=== PATIENT | female | born 1935 | race Hispanic/Latino ===

== ENCOUNTER 2019-11-26 10:33 | Emergency (ER) | payer MEDICARE ==
[2019-11-26 11:23] LABS: Basophils % 0.2 % (0-1.3); Hematocrit 29.2 % (36.0-45.0); Lymphocytes % 36.9 % (15.3-44.8); MPV 6.9 fL (7.6-11.3); RBC Red Blood Cell Count 2.98 M/uL (3.86-4.86)
[2019-11-26 11:46] LABS: Potassium 3.3 mmol/L (3.5-5.1)
[2019-11-26] MEDS ORDERED: HYDROCODONE/APAP 7.5/325 MG TAB ONE (12:38)
[2019-11-26] MEDS ORDERED: NA CHLORIDE 0.9% 500 ML ONE (12:39)
--- NOTE | 2019-11-26 13:29 | ER ---
Nurse's Notes [facility] Name: Anat Manning Age: 84 yrs Sex: Female : 1935 Arrival Date: 11/26/2019 Time: 10:34 Bed 8 Private MD: Diagnosis: Hypo-osmolality and hyponatremia;Multiple fractures of ribs Presentation: 11/25 10:46 Chief complaint: Chief complaint: Sodium of 127 11/20/19, also had recent fall and had aa5 x-rays on 11/17/19 Lumbar spine x-ray showed multiple compression fractures involving all vertebrae from T11-L5 with the exception of L1. Pt's daughter reports uncontrollable pain. 10:46 Acuity: DWAIN 3 aa5 10:46 Method Of Arrival: Wheelchair aa5 10:46 Coronavirus screen: Proceed with normal triage. Patient denies a cough. Patient denies aa5 shortness of breath or difficulty breathing. Patient denies measured and/or subjective temperature greater than 100.4F prior to today's visit. Patient denies travel on a cruise ship or to a country the [facility] currently lists as an affected area. Patient denies contact with known and/or suspected case of COVID-19. Ebola Screen: Patient negative for fever greater than or equal to 101.5 degrees Fahrenheit, and additional compatible Ebola Virus Disease symptoms. Initial Sepsis Screen: Does the patient meet any 2 criteria? No. Patient's initial sepsis screen is negative. Does the patient have a suspected source of infection? No. Patient's initial sepsis screen is negative. Risk Assessment: Do you want to hurt yourself or someone else? Patient reports no desire to harm self or others. Onset of symptoms was November 2019. Triage Assessment: 11:01 General: Appears in no apparent distress. uncomfortable, Behavior is cooperative, bp appropriate for age, anxious. Pain: Complains of pain in back. EENT: No deficits noted. Neuro: No deficits noted. Cardiovascular: No deficits noted. Respiratory: No deficits noted. GI: No signs and/or symptoms were reported involving the gastrointestinal system. : No signs and/or symptoms were reported regarding the genitourinary system. Derm: No deficits noted. Musculoskeletal: Circulation, motion, and sensation intact. Range of motion: intact in all extremities. Historical: - Allergies: 10:48 No Known Allergies; aa5 - Home Meds: 10:48 Tramadol Oral [Active]; meloxicam oral oral [Active]; Celexa Oral [Active]; eye drops aa5 for glaucoma [Active]; - PMHx: 10:48 Glaucoma; aa5 - PSHx: 10:48 Hysterectomy; aa5 - Immunization history:: Adult Immunizations up to date. - Social history:: Smoking status: Patient denies any tobacco usage or history of. Screenin:02 Abuse screen: Denies threats or abuse. Denies injuries from another. Nutritional bp screening: No deficits noted. Tuberculosis screening: No symptoms or risk factors identified. Fall Risk None identified. Assessment: 11:02 General: SEE TRIAGE NOTE. Neuro: Level of Consciousness is awake, alert, obeys bp commands, Oriented to person, place, time, situation, Appropriate for age Gait is steady. 11:22 Reassessment: PT RESTING QUIETLY, C/O BACK PAIN 2/2 RECENT DX OF LUMBAR COMPRESSION FX. bp NO NEURO S/S NOTED. 13:25 Reassessment: IVF INFUSING. ALL CURRENT ORDERS COMPLETED. bp 14:07 Reassessment: PT D/C HOME VIA W/C WITH FAMILY, DX WITH HYPONATREMIA. bp Vital Signs: 10:46 BP 168 / 93; Pulse 88; Resp 18 S; Temp 98.3(O); Pulse Ox 96% on R/A; aa5 11:22 BP 148 / 85; Pulse 83; Resp 16; Pulse Ox 97% ; bp 13:24 BP 154 / 96; Pulse 85; Resp 22; Pulse Ox 96% ; bp ED Course: 10:34 Patient arrived in ED. as 10:46 Jose Hirsch MD is Attending Physician. kdr 10:46 Antonio Nicole, GISELA is Primary Nurse. bp 10:46 Arm band placed on. aa5 10:46 Arm band placed on Patient placed in an exam room, on a stretcher. aa5 11:02 Patient has correct armband on for positive identification. Bed in low position. Call bp light in reach. Side rails up X2. Adult w/ patient. 11:09 Triage completed. aa5 11:10 Inserted saline lock: 22 gauge in right forearm, using aseptic technique. Blood bp collected. 14:07 No provider procedures requiring assistance completed. IV discontinued, intact, bp bleeding controlled, No redness/swelling at site. Pressure dressing applied. Administered Medications: 12:30 Drug: [place] (7.5 mg-325 mg) 1 tabs Route: PO; bp 14:08 Follow up: Response: No adverse reaction bp 12:30 Drug: NS 0.9% 500 ml Route: IV; Rate: bolus; Site: right forearm; bp 14:09 Follow up: IV Status: Completed infusion; IV Intake: 500ml bp Intake: 14:09 IV: 500ml; Total: 500ml. bp Outcome: 13:29 Discharge ordered by . kdr 14:08 Discharged to home via wheelchair, with family. bp 14:08 Condition: stable 14:08 Discharge instructions given to patient, family, Instructed on discharge instructions, follow up and referral plans. medication usage, Demonstrated understanding of instructions, follow-up care, medications, Prescriptions given X 1. 14:09 Patient left the ED. bp Signatures: Jose Hirsch MD MD kdr Nivia Garcia Audri RN RN aa5 Antonio Nicole RN RN bp Corrections: (The following items were deleted from the chart) 11:09 11:02 Arm band placed on bp aa5 11:13 10:46 Chief complaint: aa5 aa5
--- NOTE | 2019-11-26 13:30 | EDPHYS ---
Physician Documentation [facility] Name: Anat Manning Age: 84 yrs Sex: Female : 1935 Arrival Date: 11/26/2019 Time: 10:34 Bed 8 Private MD: ED Physician Jose Hirsch HPI: 11/25 15:15 This 84 yrs old Female presents to ER via Wheelchair with complaints of Back kdr Pain, Abnormal Lab Results. 15:15 The patient had blood draw on 11/19 and her Na was noted to be 127 so she was sent to kdr the ED today for it to be addressed. Over the past few weeks, the patient may have had some falls since on 11/16 she was diagnosed with multiple rib and compression fractures from L-11 to T5 except for L-1. She does not remember any particular injury and the daughter who is with her has not witnessed any falls either. Onset: The symptoms/episode began/occurred at an unknown time. Severity of symptoms: At their worst the symptoms were mild in the emergency department the symptoms are unchanged. The patient has not experienced similar symptoms in the past. The patient has been recently seen by a physician: the patient's primary care provider. Historical: - Allergies: 10:48 No Known Allergies; aa5 - Home Meds: 10:48 Tramadol Oral [Active]; meloxicam oral oral [Active]; Celexa Oral [Active]; eye drops aa5 for glaucoma [Active]; - PMHx: 10:48 Glaucoma; aa5 - PSHx: 10:48 Hysterectomy; aa5 - Immunization history:: Adult Immunizations up to date. - Social history:: Smoking status: Patient denies any tobacco usage or history of. ROS: 15:15 Constitutional: Negative for fever, chills, and weight loss, Eyes: Negative for injury, kdr pain, redness, and discharge, ENT: Negative for injury, pain, and discharge, Neck: Negative for injury, pain, and swelling, Cardiovascular: Negative for chest pain, palpitations, and edema, Respiratory: Negative for shortness of breath, cough, wheezing, and pleuritic chest pain, Abdomen/GI: Negative for abdominal pain, nausea, vomiting, diarrhea, and constipation, : Negative for injury, bleeding, discharge, and swelling, MS/Extremity: Negative for injury and deformity, Skin: Negative for injury, rash, and discoloration, Psych: Negative for depression, anxiety, suicide ideation, homicidal ideation, and hallucinations, Allergy/Immunology: Negative for hives, rash, and allergies, Endocrine: Negative for neck swelling, polydipsia, polyuria, polyphagia, and marked weight changes, Hematologic/Lymphatic: Negative for swollen nodes, abnormal bleeding, and unusual bruising. 15:15 Back: Positive for injury or acute deformity, decreased range of motion, pain at rest, pain with movement, of the thoracic area and lumbar area. Exam: 15:15 Constitutional: This is a well developed, well nourished patient who is awake, alert, kdr and in no acute distress. Head/Face: Normocephalic, atraumatic. Eyes: Pupils equal round and reactive to light, extra-ocular motions intact. Lids and lashes normal. Conjunctiva and sclera are non-icteric and not injected. Cornea within normal limits. Periorbital areas with no swelling, redness, or edema. Neck: Trachea midline, no thyromegaly or masses palpated, and no cervical lymphadenopathy. Supple, full range of motion without nuchal rigidity, or vertebral point tenderness. No Meningismus. Chest/axilla: Normal chest wall appearance and motion. Nontender with no deformity. No lesions are appreciated. Cardiovascular: Regular rate and rhythm with a normal S1 and S2. No gallops, murmurs, or rubs. Normal PMI, no JVD. No pulse deficits. Respiratory: Lungs have equal breath sounds bilaterally, clear to auscultation and percussion. No rales, rhonchi or wheezes noted. No increased work of breathing, no retractions or nasal flaring. Abdomen/GI: Soft, non-tender, with normal bowel sounds. No distension or tympany. No guarding or rebound. No evidence of tenderness throughout. Skin: Warm, dry with normal turgor. Normal color with no rashes, no lesions, and no evidence of cellulitis. MS/ Extremity: Pulses equal, no cyanosis. Neurovascular intact. Full, normal range of motion. Neuro: Awake and alert, GCS 15, oriented to person, place, time, and situation. Cranial nerves II-XII grossly intact. Motor strength 5/5 in all extremities. Sensory grossly intact. Cerebellar exam normal. Normal gait. Psych: Awake, alert, with orientation to person, place and time. Behavior, mood, and affect are within normal limits. 15:15 Back: pain, that is moderate, of the lumbar area. Vital Signs: 10:46 BP 168 / 93; Pulse 88; Resp 18 S; Temp 98.3(O); Pulse Ox 96% on R/A; aa5 11:22 BP 148 / 85; Pulse 83; Resp 16; Pulse Ox 97% ; bp 13:24 BP 154 / 96; Pulse 85; Resp 22; Pulse Ox 96% ; bp MDM: 13:29 Patient medically screened. kdr 15:53 Data reviewed: vital signs, nurses notes, lab test result(s), EKG, radiologic studies. kdr Counseling: I had a detailed discussion with the patient and/or guardian regarding: the historical points, exam findings, and any diagnostic results supporting the discharge/admit diagnosis, lab results, radiology results, the need for outpatient follow up. 11/25 11:02 Order name: CBC with Diff; Complete Time: 12:00 kdr 11/25 11:02 Order name: Chem 7; Complete Time: 12:00 kdr Administered Medications: 12:30 Drug: [place] (7.5 mg-325 mg) 1 tabs Route: PO; bp 14:08 Follow up: Response: No adverse reaction bp 12:30 Drug: NS 0.9% 500 ml Route: IV; Rate: bolus; Site: right forearm; bp 14:09 Follow up: IV Status: Completed infusion; IV Intake: 500ml bp Disposition: 11/26/19 13:29 Discharged to Home. Impression: Hypo-osmolality and hyponatremia, Multiple fractures of ribs. - Condition is Stable. - Discharge Instructions: Hyponatremia, [id number]. - Prescriptions for Tylenol- Codeine #3 300-30 mg Oral Tablet - take 1 tablet by ORAL route every 4-6 hours As needed; 20 tablet. - Medication Reconciliation Form, Thank You Letter, Antibiotic Education, Prescription Opioid Use form. - Follow up: Private Physician; When: 2 - 3 days; Reason: If symptoms return, Further diagnostic work-up, Recheck today's complaints, Continuance of care, Re-evaluation by your physician. - Problem is new. - Symptoms have improved. Signatures: Dispatcher [employer] EDMT Jose Hirsch MD MD kdr Elysia Dueñas, RN RN aa5 Antonio Nicole, RN RN bp Corrections: (The following items were deleted from the chart) 14:09 13:29 11/26/2019 13:29 Discharged to Home. Impression: Hypo-osmolality and bp hyponatremia; Multiple fractures of ribs. Condition is Stable. Forms are Medication Reconciliation Form, Thank You Letter, Antibiotic Education, Prescription Opioid Use. Follow up: Private Physician; When: 2 - 3 days; Reason: If symptoms return, Further diagnostic work-up, Recheck today's complaints, Continuance of care, Re-evaluation by your physician. Problem is new. Symptoms have improved. kdr
[2019-11-26 14:24] VITALS: TEMP 98.3
[2019-11-26 14:26] VITALS: BP 154/96; O2SAT 96
== END 2019-11-26 14:09 | disposition home or self-care (01) ==
LOC: ER 10:33
DX: S22.49XA Multiple fractures of ribs, unspecified side, initial encounter for closed fracture (principal); X58.XXXA Exposure to other specified factors, initial encounter; E87.1 Hypo-osmolality and hyponatremia; H40.9 Unspecified glaucoma
CPT/HCPCS: 96361; 85025; 80048; 36415; 96360; 99284; J7040

== ENCOUNTER 2024-07-29 22:11 | Inpatient (IN) | payer OTHER ==
[2024-07-29] MEDS ORDERED: IBUPROFEN 200 MG TAB PO ONE (22:57)
[2024-07-30] MEDS ORDERED: CODEINE 30MG/APAP 300MG TAB ONE (00:16)
--- NOTE | 2024-07-30 01:19 | RAD REPORT ---
EXAM: CT Head and Cervical Spine Without Intravenous Contrast CLINICAL HISTORY: The patient is 88 years old and is Female; TRAUMA TECHNIQUE: Axial computed tomography images of the head/brain and cervical spine without intravenous contrast. Sagittal and coronal reformatted images were created and reviewed. This CT exam was performed using one or more of the following dose reduction techniques: automated exposure control, adjustmen t of the mA and/or kV according to patient size, and/or use of iterative reconstruction technique. COMPARISON: No relevant prior studies available. FINDINGS: BRAIN: There is diffuse cerebral atrophy present, consistent with this patient's age. There is patchy hypoattenuation of the deep white matter which is non-specific, but most likely owing to chronic small vessel ischemic change in a patient of this age group. No intracranial hemorrhage, ma ss effect, midline shift is seen. There are no extra-axial fluid collections. VENTRICLES: Unremarkable. No ventriculomegaly. SKULL: Innumerable lucent foci throughout the calvarium are present. There is no acute fracture. SINUSES: Unremarkable as visualized. No acute sinusitis. MASTOID AIR CELLS: Unremarkable as visualized. No mastoid effusion. ORBITS: Postsurgical change of the right globe is present. VERTEBRAE: The bones are diffusely osteopenic. The vertebral body heights and alignment are maint ained. No acute fracture. DISCS/SPINAL CANAL/NEURAL FORAMINA: The intervertebral disc spaces are maintained. No spinal rodrigo l stenosis. SOFT TISSUES: The soft tissues are normal. LUNG APICES: The lung apices are clear. IMPRESSION: 1. No acute intracranial findings. 2. Innumerable lucent foci throughout the calvarium and visualized cervical spine. Findings may be secondary to diffuse osteopenia, malignancy, metastatic disease, or multiple myeloma. Correlation with patient history and further evaluation is recommended as indicated. 3. No fracture or malalignment of the cervical spine. Electronically signed by: Afshan Blandon MD 07/30/2024 01:14 AM [facility] Due to temporary technical issues with the PACS/My[employer] reporting system, reports are being opal d by the in-house radiologist without review as a courtesy to ensure prompt reporting the interpreting radiologist is fully responsible for the content of the report. Transcribed Date/Time: 07/30/2024 1:19 AM
--- NOTE | 2024-07-30 01:21 | RAD REPORT ---
EXAM: CT Pelvis Without Intravenous Contrast CLINICAL HISTORY: The patient is 88 years old and is Female; PAIN TECHNIQUE: Axial computed tomography images of the pelvis without intravenous contrast. Sagittal and coronal reformatted images were created and reviewed. This CT exam was performed using one or more of the following dose reduction techniques: automated exposure control, adjustment of the mA and/or kV according to patient size, and/or use of iterative reconstruction technique. COMPARISON: Pelvic radiographs performed July 29, 2024 FINDINGS: BONES/JOINTS: The bones are diffusely osteopenic. The femoral heads are located. A fracture throu gh the left iliac wing is present which is not significantly displaced. The SI joints and pubic symphysis are intact without evidence of diastases. Left inferior and superior pubic rami fractures a re noted. SOFT TISSUES: The soft tissues are normal. VASCULATURE: Calcified phleboliths are present within the pelvis. Atherosclerosis of the vascul ature is present. The vessels are normal in caliber. BLADDER: The bladder is minimally distended. No stones. IMPRESSION: 1. Left iliac wing fracture. 2. Left superior and inferior pubic ramus fractures. Electronically signed by: Afshan Blandon MD 07/30/2024 01:16 AM [facility] Due to temporary technical issues with the PACS/[employer] reporting system, reports are being opal d by the in-house radiologist without review as a courtesy to ensure prompt reporting the interpreting radiologist is fully responsible for the content of the report. Transcribed Date/Time: 07/30/2024 1:21 AM
--- NOTE | 2024-07-30 01:46 | EDPHYS ---
Physician Documentation [facility] Name: Anat Moon Age: 88 yrs Sex: Female : 1935 Arrival Date: 07/29/2024 Time: 22:11 Bed 14 Private MD: ED Physician Roberto Candelario HPI: 07/29 23:42 This 88 yrs old Female presents to ER via EMS with complaints of hip pain s/p kb fall. 23:42 Pt is an 88 year old female who presents for pain to left hip and groin after falling kb from standing position. Son states pt got up from bed to go to the restroom and fell onto left side. States pt's walker was laying on it's side when he walked into the room. 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 States pt did hit her head, but denies loc, nausea, vomiting, headache, neck pain. Pt only reports pain to left hip and groin. . Historical: - Allergies: 22:19 No Known Allergies; jb4 - PMHx: 22:19 Glaucoma; multiple myloma lung cancer (Glaucoma); anxiety (Glaucoma); jb4 - Immunization history:: Adult Immunizations up to date. - Infectious Disease History:: Denies. - Social history:: Smoking status: Patient denies any tobacco usage or history of. ROS: 23:40 Constitutional: As per HPI kb Exam: 23:40 Constitutional: This is a well developed, well nourished patient who is awake, alert, kb and in no acute distress. Head/Face: Normocephalic, atraumatic. ENT: Moist Mucous membranes Neck: Trachea midline and no cervical lymphadenopathy. Supple, full range of motion without nuchal rigidity, or vertebral point tenderness. No Meningismus. Cardiovascular: Regular rate Respiratory: Respirations even and unlabored. No increased work of breathing. Talking in full sentences Abdomen/GI: Soft, non-tender. No distention Back: No spinal tenderness. No costovertebral tenderness. Full range of motion. Skin: Warm, dry with normal turgor. Normal color. Neuro: Awake and alert, GCS 15, oriented to person, place, time, and situation. 23:40 Musculoskeletal/extremity: Extremities: grossly normal except: noted in the left femoral area and left hip: pain, tenderness, ROM: limited active range of motion due to pain, Circulation is intact in all extremities. Sensation intact. Weight bearing: is unable to bear weight, Vital Signs: 22:20 BP 140 / 73; Pulse 70; Resp 20; Temp 97.2; Pulse Ox 100% on R/A; Weight 62.6 kg (R); jb4 Height 5 ft. 1 in. (R); Pain 4/10; 23:27 BP 121 / 63; Pulse 71; Resp 16; Pulse Ox 96% on R/A; jb4 07/30 00:57 BP 123 / 63; Pulse 75; Resp 18; Pulse Ox 99% ; cp4 03:00 BP 106 / 55; Pulse 81; Resp 16; Pulse Ox 97% ; cp4 07/29 22:20 Body Mass Index 26.07 (62.60 kg, 154.94 cm) jb4 07/29 22:20 Pain Scale: Adult jb4 MDM: 07/29 22:16 Medical Screening Exam initiated kb 07/30 01:01 Data reviewed: vital signs, nurses notes. Transition of care: After a detail discussion kb of the patient's case, care is transferred to Roberto Candelario MD. :23 ED course: EXAM: CT Pelvis Without Intravenous Contrast CLINICAL HISTORY: The patient sp4 is 88 years old and is Female; PAIN TECHNIQUE: Axial computed tomography images of the pelvis without intravenous contrast. Sagittal and coronal reformatted images were created and reviewed. This CT exam was performed using one or more of the following dose reduction techniques: automated exposure control, adjustment of the mA and/or kV according to patient size, and/or use of iterative reconstruction technique. COMPARISON: Pelvic radiographs performed July 29, 2024 FINDINGS: BONES/JOINTS: The bones are diffusely osteopenic. The femoral heads are located. A fracture through the left iliac wing is present which is not significantly displaced. The SI joints and pubic symphysis are intact without evidence of diastases. Left inferior and superior pubic rami fractures are noted. SOFT TISSUES: The soft tissues are normal. VASCULATURE: Calcified phleboliths are present within the pelvis. Atherosclerosis of the vasculature is present. The vessels are normal in caliber. BLADDER: The bladder is minimally distended. No stones. IMPRESSION: 1. Left iliac wing fracture. 2. Left superior and inferior pubic ramus fractures. Electronically signed by: Afshan Blandon MD 07/30/2024 01:16 AM . :23 ED course: EXAM: CT Head and Cervical Spine Without Intravenous Contrast CLINICAL sp4 HISTORY: The patient is 88 years old and is Female; TRAUMA TECHNIQUE: Axial computed tomography images of the head/brain and cervical spine without intravenous contrast. Sagittal and coronal reformatted images were created and reviewed. This CT exam was performed using one or more of the following dose reduction techniques: automated exposure control, adjustment of the mA and/or kV according to patient size, and/or use of iterative reconstruction technique. COMPARISON: No relevant prior studies available. FINDINGS: BRAIN: There is diffuse cerebral atrophy present, consistent with this patient's age. There is patchy hypoattenuation of the deep white matter which is non-specific, but most likely owing to chronic small vessel ischemic change in a patient of this age group. No intracranial hemorrhage, mass effect, midline shift is seen. There are no extra-axial fluid collections. VENTRICLES: Unremarkable. No ventriculomegaly. SKULL: Innumerable lucent foci throughout the calvarium are present. There is no acute fracture. SINUSES: Unremarkable as visualized. No acute sinusitis. MASTOID AIR CELLS: Unremarkable as visualized. No mastoid effusion. ORBITS: Postsurgical change of the right globe is present. VERTEBRAE: The bones are diffusely osteopenic. The vertebral body heights and alignment are maintained. No acute fracture. DISCS/SPINAL CANAL/NEURAL FORAMINA: The intervertebral disc spaces are maintained. No spinal canal stenosis. SOFT TISSUES: The soft tissues are normal. LUNG APICES: The lung apices are clear. IMPRESSION: 1. No acute intracranial findings. 2. Innumerable lucent foci throughout the calvarium and visualized cervical spine. Findings may be secondary to diffuse osteopenia, malignancy, metastatic disease, or multiple myeloma. Correlation with patient history and further evaluation is recommended as indicated. 3. No fracture or malalignment of the cervical spine.. ED course: EXAM: XR Left Hip With Pelvis When Performed, 2 or 3 Views CLINICAL HISTORY: The patient is 88 years old and is Female; PAIN TECHNIQUE: Two or three views of the left hip with pelvis when performed. COMPARISON: No relevant prior studies available. FINDINGS: BONES/JOINTS: The bones are osteopenic. The femoral head is located. There is no acute fracture. No dislocation. SOFT TISSUES: Unremarkable. IMPRESSION: No acute findings in the left hip.. 01:24 ED course: EXAM: XR Pelvis, 1 or 2 Views CLINICAL HISTORY: The patient is 88 years old sp4 and is Female; PAIN TECHNIQUE: Frontal view of the pelvis. COMPARISON: No relevant prior studies available. FINDINGS: BONES/JOINTS: The bones are osteopenic. The femoral heads are located. The SI joints and pubic symphysis are intact without evidence of diastases. No acute fracture. No dislocation. SOFT TISSUES: Unremarkable. IMPRESSION: No acute findings in the pelvis. . 01:44 Differential diagnosis: abrasion, closed head injury, contusion, fracture, laceration, sp4 multiple trauma, sprain, strain. Consideration of Admission/Observation Patient was admitted/placed on observation. Escalation of care including admission/observation considered. Management of patient was discussed with the following: Hospitalist: Francis AVITIA . Adhesive Bonding Machine Operator: Rajesh Lau MD . ED course: We have requested consultation by orthopedist also admission for pain control and physical therapy.. 07/30 01:42 Order name: CBC with Diff sp4 07/30 01:42 Order name: CMP; Complete Time: 03:06 sp4 07/30 01:42 Order name: Urinalysis w/ reflexes sp4 07/30 01:43 Order name: PT-INR; Complete Time: 03:06 sp4 07/30 01:43 Order name: Type And Screen sp4 07/30 02:47 Order name: Manual Differential EDMS 07/30 03:08 Order name: Urinalysis w/ reflexes EDMS 07/30 03:08 Order name: CBC with Automated Diff EDMS 07/30 03:08 Order name: CBC with Automated Diff EDMS 07/30 03:08 Order name: Comprehensive Metabolic Panel EDMS 07/30 03:08 Order name: Comprehensive Metabolic Panel EDMS 07/30 07:53 Order name: Basic Metabolic Panel EDMS 07/30 11:41 Order name: Osmolality, Serum EDMS 07/29 22:48 Order name: CT Head C Spine; Complete Time: :23 kb 07/29 22:48 Order name: Hip Left 2 View XRAY kb 07/29 22:48 Order name: Pelvis XRAY kb 07/30 00:04 Order name: CT Pelvis wo Cont; Complete Time: :23 kb 07/30 03:08 Order name: Physical Therapy Consult EDPR 07/30 01:42 Order name: IV Saline Lock; Complete Time: 01:59 sp4 07/30 01:42 Order name: Labs collected and sent; Complete Time: :59 sp4 Administered Medications: 07/29 23:05 Drug: Ibuprofen PO 600 mg PO once Route: PO; jb4 07/30 00:25 Follow up: Response: No adverse reaction; Marked relief of symptoms jb4 00:25 Drug: Acetaminophen-Codeine PO (300 mg-30 mg) 1 tablet PO once; RASS on ADMIN: Combtv4, jb4 Very Agttd3, Agttd2, Rstlss1, AlertClm0, Drwsy-1, Lt Sdtn-2, Mod Sdtn-3, Dp Sdtn-4, UnArsble-5 Route: PO; 02:25 Follow up: Response: No adverse reaction; Pain is decreased cp4 02:09 Drug: morphine IVP or IV 2 mg IVP once over 4 mins Route: IVP; Infused Over: 4 mins; cp4 Site: right antecubital; 02:25 Follow up: Response: No adverse reaction; Pain is decreased cp4 04:26 Not Given (Duplicate Order): ondansetron 4 mg IVP once; over 2 minutes cp4 Disposition: 01:45 Co-signature as Attending Physician, Monet GONZALEZ I agree with the assessment sp4 and plan of care. I reviewed the patient's care provided by Advanced Practice Provider \T\ agree w/ the diagnosis \T\ care plan. I personally saw the pt \T\ performed a substantive portion of the visit, incldng all aspects of the (History/Exam/Medical Decision Making). Disposition Summary: 07/30/24 01:46 Hospitalization Ordered Notes: Hospitalization Status: Inpatient Admission sp4 Provider: Canelo Blanco spMilton Condition: Stable sp4 Problem: new sp4 Symptoms: have improved sp4 Bed/Room Type: Standard sp4 Location: Telemetry/MedSurg (Inpatient)(07/30/24 13:33) kb3 Room Assignment: 219(07/30/24 13:33) kb3 Diagnosis - Left superior pubic ramus fracture, left inferior pubic ramus fracture, left iliac sp4 wing fracture, moderate to severe pain with ambulation , Acute Fall at home Forms: - Medication Reconciliation Form sp4 - SBAR form sp4 - Leadership Thank You Letter sp4 Signatures: Dispatcher [employer] EDMS Monet Rubio, SENIOR SAFETY SUPPORT MANAGER-C SENIOR SAFETY SUPPORT MANAGER-[place] Marvin Garcia em1 Munir Mcdowell, RN RN jb4 Dalia Irwin, GISELA RN vc1 Carey Santamaria, RN RN kb3 Roberto Candelario MD MD sp4 Carmel Stokes cp4 Corrections: (The following items were deleted from the chart) 07/29 22:48 22:48 Head C Spine MPR Wo Con+CT.RAD.BRZ ordered. EDMS EDMS 22:48 22:48 Hip Left 2 View+RAD.RAD.BRZ ordered. EDMS EDMS 22:48 22:48 Pelvis+RAD.RAD.BRZ ordered. EDMS EDMS 07/30 00:04 00:04 Pelvis Wo Cont+CT.RAD.BRZ ordered. EDMS EDMS 01:43 01:43 CBC+H.LAB.BRZ ordered. EDMS EDMS 01:43 01:43 COMPREHENSIVE METABOLIC PANEL+C.LAB.BRZ ordered. EDMS EDMS 01:43 01:43 Urinalysis+U.LAB.BRZ ordered. EDMS EDMS 02:22 01:46 Telemetry/MedSurg (Inpatient) sp4 vc1 02:22 01:46 sp4 vc1 09:26 02:22 RUST ER HOLD vc1 em1 09:26 02:22 ERHOLD- vc1 em1 10:03 09:26 Telemetry/MedSurg (Inpatient) em1 kb3 10:03 09:26 408 em1 kb3 13:33 10:03 RUST ER HOLD kb3 kb3 13:33 10:03 ERHOLD- kb3 kb3
--- NOTE | 2024-07-30 01:46 | ER ---
Nurse's Notes [facility] Name: Anat Moon Age: 88 yrs Sex: Female : 1935 Arrival Date: 07/29/2024 Time: 22:11 Bed 14 Private MD: Diagnosis: Left superior pubic ramus fracture, left inferior pubic ramus fracture, left iliac wing fracture, moderate to severe pain with ambulation , Acute Fall at home Presentation: 07/29 22:18 Chief complaint: EMS states: Family called due to fall. Pt complaining of left hip pain jb4 that originated in the groin. No LOC, no thinners. Pain is a 3-4 at rest and a 10 with being moved. 22:20 Coronavirus screen: At this time, the client does not indicate any symptoms associated jb4 with coronavirus-19. Ebola Screen: No symptoms or risks identified at this time. Initial Sepsis Screen: Does the patient meet any 2 criteria? No. Patient's initial sepsis screen is negative. Does the patient have a suspected source of infection? No. Patient's initial sepsis screen is negative. Risk Assessment: Do you want to hurt yourself or someone else? Patient reports no desire to harm self or others. Onset of symptoms was July 29, 2024. Transition of care: patient was not received from another setting of care. 22:20 Method Of Arrival: EMS: [facility] jb4 22:20 Acuity: DWAIN 3 jb4 Historical: - Allergies: 22:19 No Known Allergies; jb4 - PMHx: 22:19 Glaucoma; multiple myloma lung cancer (Glaucoma); anxiety (Glaucoma); jb4 - Immunization history:: Adult Immunizations up to date. - Infectious Disease History:: Denies. - Social history:: Smoking status: Patient denies any tobacco usage or history of. Screenin:31 [facility] ED Fall Risk Assessment (Adult) History of falling in the last 3 months, jb4 including since admission No falls in past 3 months (0 pts) Confusion or Disorientation No (0 pts) Intoxicated or Sedated No (0 pts) Impaired Gait No (0 pts) Mobility Assist Device Used No (0 pt) Altered Elimination No (0 pt) Score/Fall Risk Level 0 - 2 = Low Risk Oriented to surroundings, Maintained a safe environment. Abuse screen: Denies threats or abuse. Nutritional screening: No deficits noted. Tuberculosis screening: No symptoms or risk factors identified. Assessment: 22:31 General: Appears in no apparent distress. comfortable, Behavior is calm, cooperative, jb4 appropriate for age. Pain: Complains of pain in groin and left hip Pain does not radiate. Pain currently is 4 out of 10 on a pain scale. Neuro: Level of Consciousness is awake, alert, obeys commands, Oriented to person, place, time, situation. Cardiovascular: Patient's skin is warm and dry. Respiratory: Airway is patent Respiratory effort is even, unlabored, Respiratory pattern is regular, symmetrical. Derm: Skin is intact, Skin is pink, warm \T\ dry. Musculoskeletal: Circulation, motion, and sensation intact. Range of motion: intact in all extremities. 23:26 Reassessment: Patient appears in no apparent distress at this time. Patient and/or jb4 family updated on plan of care and expected duration. Pain level reassessed. Patient is alert, oriented x 3, equal unlabored respirations, skin warm/dry/pink. Vital Signs: 22:20 BP 140 / 73; Pulse 70; Resp 20; Temp 97.2; Pulse Ox 100% on R/A; Weight 62.6 kg (R); jb4 Height 5 ft. 1 in. (R); Pain 4/10; 23:27 BP 121 / 63; Pulse 71; Resp 16; Pulse Ox 96% on R/A; jb4 07/30 00:57 BP 123 / 63; Pulse 75; Resp 18; Pulse Ox 99% ; cp4 03:00 BP 106 / 55; Pulse 81; Resp 16; Pulse Ox 97% ; cp4 07/29 22:20 Body Mass Index 26.07 (62.60 kg, 154.94 cm) jb4 07/29 22:20 Pain Scale: Adult 4 ED Course: 07/29 22:15 Patient arrived in ED. vc1 22:16 Monet Rubio FNP-C [facility] kb 22:16 Roberto Candelario MD is Attending Physician. kb 22:21 Triage completed. jb4 22:31 Arm band placed on right wrist. jb4 22:31 Patient has correct armband on for positive identification. Bed in low position. Call jb4 light in reach. Side rails up X 1. Provided Education on: plan of care. 23:18 Hip Left 2 View XRAY In Process Unspecified. EDMS 23:18 Pelvis XRAY In Process Unspecified. EDMS 23:25 Mnuir Mcdowell, RN is Primary Nurse. jb4 07/30 00:05 CT Head C Spine In Process Unspecified. EDMS 00:11 CT Pelvis wo Cont In Process Unspecified. EDMS 01:45 Canelo Blanco MD is Hospitalizing Provider. sp4 02:02 No provider procedures requiring assistance completed. Initial lab(s) drawn, by sc, cp4 sent to lab. Inserted saline lock: 20 gauge in right antecubital area, using aseptic technique. Blood collected. Flushed with 10 mL NS. 03:01 Patient admitted, IV remains in place. cp4 11:42 Primary Nurse role handed off by Munir Mcdowell, GISELA bp 11:42 Antonio Nicole, RN is Primary Nurse. bp Administered Medications: 07/29 23:05 Drug: Ibuprofen PO 600 mg PO once Route: PO; jb4 07/30 00:25 Follow up: Response: No adverse reaction; Marked relief of symptoms jb4 00:25 Drug: Acetaminophen-Codeine PO (300 mg-30 mg) 1 tablet PO once; RASS on ADMIN: Combtv4, jb4 Very Agttd3, Agttd2, Rstlss1, AlertClm0, Drwsy-1, Lt Sdtn-2, Mod Sdtn-3, Dp Sdtn-4, UnArsble-5 Route: PO; 02:25 Follow up: Response: No adverse reaction; Pain is decreased cp4 02:09 Drug: morphine IVP or IV 2 mg IVP once over 4 mins Route: IVP; Infused Over: 4 mins; cp4 Site: right antecubital; 02:25 Follow up: Response: No adverse reaction; Pain is decreased cp4 04:26 Not Given (Duplicate Order): ondansetron 4 mg IVP once; over 2 minutes cp4 Medication: 07/29 22:31 VIS not applicable for this client. jb4 Outcome: 07/30 01:46 Decision to Hospitalize by Provider. sp4 03:01 Admitted to ER Hold. Please see [facility] for further documentation. cp4 03:01 Condition: stable 03:01 Instructed on the need for admit, 14:58 Patient left the ED. bp Signatures: Dispatcher [employer] EDMS Monet Rubio, TERMITE TREATER HELPER-C TERMITE TREATER HELPER-Munir Hopkins RN RN jb4 Antonio Nicole RN RN bp Dalia Irwin RN RN vc1 Roberto Candelario MD MD sp4 Carmel Stokes cp4
[2024-07-30] MEDS ORDERED: MORPHINE 2 MG/ML SYR ONE ×3 (02:04→12:40)
[2024-07-30 02:39] LABS: PT Prothrombin Time 11.8 SECONDS (9.4-12.5); Protime INR 1.13
[2024-07-30 02:40] LABS: Absolute Lymphocytes (CBC) 1.1 K/uL (0.7-4.9); Absolute Monocytes 0.6 K/uL (0.1-1.3); Absolute Neutrophil 12.1 K/uL (1.8-8.0); Eosinophils % 0.2 % (0-4.4); Hematocrit 38.7 % (36.0-45.0); Hemoglobin 13.5 g/dL (12.0-15.0); Lymphocytes % 7.9 % (15.3-44.8); MCH 33.2 pg (27.0-35.0); MPV 7.1 fL (7.6-11.3); Monocytes % 4.1 % (3.3-12.3); Neutrophils % 87.8 % (41.7-73.7); Platelets 272 thou/uL (152-406); RBC Red Blood Cell Count 4.07 M/uL (3.86-4.86); Red Cell Distribution Width 12.4 % (12.1-15.2)
[2024-07-30 02:50] LABS: Albumin 3.6 g/dL (3.4-5.0); Albumin/Globulin Ratio 0.8 (1.1-1.8); Anion Gap 10.9 mEq/L (5.0-15.0); Bilirubin Total 0.8 mg/dL (0.2-1.0); Globulin 4.5 g/dL (2.3-3.5); Potassium 3.9 mEq/L (3.5-5.1); Protein, Total 8.1 g/dL (6.4-8.2)
[2024-07-30] MEDS ORDERED: ONDANSETRON 4 MG/2 ML VIAL IV PRN (03:02)
--- NOTE | 2024-07-30 03:03 | P.HP ---
Certification for Inpatient Patient admitted to: Inpatient With expected LOS: >2 Midnights Practitioner: I am a practitioner with admitting privileges, knowledge of patient current condition, hospital course, and medical plan of care. Services: Services provided to patient in accordance with Admission requirements found in Title 42 Section 412.3 of the Code of Federal Regulations Patient History Date of Service: 07/30/24 Reason for admission: Hip Pain History of Present Illness: 88 yrs old Female with past medical history of glaucoma, multiple myeloma, history of lung cancer, anxiety, who was brought to ER with hip pain status post fall. She had a fall from standing position and started having pain to left hip and groin after falling. Patient is a poor historian hence most of the history is obtained from the chart review and also talking to the ER physician and family at the bedside. She apparently got up from bed to go to the restroom and fell onto left side. States pt's walker was laying on it's side when the family walked into the room. Denies any syncopal episode. No seizures or loss of consciousness. Denies any nausea, vomiting, headache, neck pain. Pt only reports pain to left hip and groin. . Patient was assessed in the ER and is admitted for further management of pubic Rami fracture Allergies No Known Allergies Allergy (Verified 11/26/19 11:01) Home medications list reviewed: Yes Home Medications: Citalopram [Celexa] 10 mg PO DAILY 07/30/24 Ibandronate Sodium [Boniva] 150 mg PO SEECOM 07/30/24 LORazepam [Ativan] 1 mg PO PRN PRN 07/30/24 Latanoprost Ophth [Xalatan 0.005%*] 2.5 ml EACH EYE DAILY 07/30/24 Levocetirizine Dihydrochloride [Xyzal] 5 mg PO DAILY 07/30/24 - Past Medical/Surgical History Past Medical History: Reviewed- Non-Contributory Past Surgical History: Reviewed- Non-Contributory - Social History Smoking Status: Never smoker Review of Systems is unable to be obtained Physical Examination - Vital Signs Temperature: 97.2 F Blood Pressure: 102/61 Pulse: 90 Respirations: 18 Pulse Ox (%): 94 - Physical Exam General: Alert, Moderate distress HEENT: Atraumatic, Normocephalic Neck: Supple Respiratory: Clear to auscultation bilaterally, Normal air movement Cardiovascular: Regular rate/rhythm, Normal S1 S2 Capillary refill: <2 Seconds Gastrointestinal: Soft and benign, W/out hepatosplenomegaly Musculoskeletal: No clubbing, Tenderness Integumentary: No rashes Neurological: Abnormal gait Lymphatics: No axilla or inguinal lymphadenopathy - Studies Laboratory Data (last 24 hrs) 07/30/24 07/30/24 07/30/24 01:55 01:55 01:55 WBC 13.70 H Hgb 13.5 Hct 38.7 Plt Count 272 PT 11.8 INR 1.13 Sodium 128 L Potassium 3.9 BUN 13 Creatinine 0.74 Glucose 151 H Total Bilirubin 0.8 AST 26 ALT 20 Alkaline Phosphatase 51 Assessment and Plan - Plan Fall Hip Pain CT findings noted 1. Left iliac wing fracture. 2. Left superior and inferior pubic ramus fractures Pain controlled Orthopedic consulted PT OT evaluation Hyponatremia IV hydration Monitor electrolytes and replace accordingly Anxiety Continue home medications and titrate as needed GI/DVT prophylaxis Advanced directive full code Discharge Plan: Long Term Plan to discharge in: 48 Hours - Advance Directives Does patient have a Living Will: No Does patient have a Durable POA for Healthcare: No - Code Status/Comfort Care Code Status: Full Code Time Spent Managing Pts Care (In Minutes): 48
[2024-07-30] MEDS ORDERED: HYDROCODONE/APAP 5/325 MG TAB PO PRN (03:06)
[2024-07-30 03:24] LABS: Band Neutrophils 6 % (0-1); Differential Total Cells Count 100; Lymphocytes 12 % (15-42); Monocytes 5 % (0-10); Segmented Neutrophils 77 % (40-80)
[2024-07-30 03:25] LABS: Blood Morphology Comment NOT SEEN (NOT SEEN); Platelet Estimate ADEQ
[2024-07-30 04:00] VITALS: BMI 26.0
[2024-07-30] MEDS: NA CHLORIDE 0.9% 1,000 ML IV SCH (05:41)
--- NOTE | 2024-07-30 05:56 | RAD REPORT ---
EXAM: XR Pelvis, 1 or 2 Views CLINICAL HISTORY: The patient is 88 years old and is Female; PAIN TECHNIQUE: Frontal view of the pelvis. COMPARISON: No relevant prior studies available. FINDINGS: BONES/JOINTS: The bones are osteopenic. The femoral heads are located. The SI joints and pubic sy mphysis are intact without evidence of diastases. No acute fracture. No dislocation. SOFT TISSUES: Unremarkable. IMPRESSION: No acute findings in the pelvis. Electronically signed by: Afshan Blandon MD 07/29/2024 11:49 PM [facility] Due to temporary technical issues with the PACS/[employer] reporting system, reports are being opal d by the in-house radiologist without review as a courtesy to ensure prompt reporting the interpreting radiologist is fully responsible for the content of the report. Transcribed Date/Time: 07/30/2024 5:56 AM
--- NOTE | 2024-07-30 05:56 | RAD REPORT ---
EXAM: XR Left Hip With Pelvis When Performed, 2 or 3 Views CLINICAL HISTORY: The patient is 88 years old and is Female; PAIN TECHNIQUE: Two or three views of the left hip with pelvis when performed. COMPARISON: No relevant prior studies available. FINDINGS: BONES/JOINTS: The bones are osteopenic. The femoral head is located. There is no acute fracture. No dislocation. SOFT TISSUES: Unremarkable. IMPRESSION: No acute findings in the left hip. Electronically signed by: Afshan Blandon MD 07/29/2024 11:50 PM [facility] Due to temporary technical issues with the PACS/[employer] ([employer]) reporting system, reports are being opal d by the in-house radiologist without review as a courtesy to ensure prompt reporting the interpreting radiologist is fully responsible for the content of the report. Transcribed Date/Time: 07/30/2024 5:56 AM
[2024-07-30] MEDS: POTASSIUM CL SA 10 MEQ TAB PO ONE (05:57)
[2024-07-30] MEDS ORDERED: KCL 20 MEQ/100 mL IVPB 20 MEQ/100 ML BAG IV ONE (06:00)
[2024-07-30] MEDS ORDERED: POTASSIUM CL SA 10 MEQ TAB PO ONE (06:02)
[2024-07-30] MEDS ORDERED: NA CHLORIDE 0.9% 1,000 ML ONE (06:02)
[2024-07-30 07:50] LABS: Anion Gap 10.7 mEq/L (5.0-15.0); Potassium 4.7 mEq/L (3.5-5.1)
[2024-07-30] MEDS: LEVOCETIRIZINE DIHYDROCHLORIDE 5 MG PO SCH (09:00)
[2024-07-30] MEDS: ENOXAPARIN 40 MG/0.4 ML SQ SCH (09:00)
[2024-07-30] MEDS: CITALOPRAM 10 MG TABLET PO SCH (09:00)
[2024-07-30] MEDS: MORPHINE 2 MG/ML SYR IV PRN (09:05)
[2024-07-30] MEDS ORDERED: ENOXAPARIN 40 MG/0.4 ML SQ ONE (09:28)
[2024-07-30] MEDS: ACETAMINOPHEN 325 MG TABLET PO PRN (16:23)
[2024-07-30 17:51] LABS: Specific Gravity 1.012 (1.005-1.030); Sqamous Epithelial <5 /HPF (None Seen); Transitional Epithelial <5 /HPF (None Seen); Urine Bacteria <20 /HPF (<20); Urine Bilirubin NEGATIVE (Negative); Urine Blood Negative (Negative); Urine Clarity Clear (Clear); Urine Color Light-Yellow (Yellow); Urine Culture Reflex Order NOT NEEDED; Urine Glucose NEGATIVE (Negative); Urine Ketones NEGATIVE (Negative); Urine Microscopic Reflex YN ORDER UMIC; Urine Nitrite NEGATIVE (Negative); Urine Protein NEGATIVE (Negative); Urine RBC <5 /HPF (None Seen); Urine Urobilinogen Normal (Normal); Urine WBC <5 /HPF (<5)
--- NOTE | 2024-07-30 21:11 | CON ---
Date of Consultation: 07/30/2024 Reason For Consultation: Left hip pain. History Of Present Illness: This is an 88-year-old female who presented to the ER after sustaining a fall onto her left side with subsequent pain and difficulty with ambulation. As part of the fall, t he patient is mobilized with the use of a walker. The patient does have a history of significant bli ndness and has help with a 24-hour sitter. States does live at home. The patient has a past medical history of glaucoma, multiple myeloma, lung cancer, and anxiety. The patient denies any musculoskel etal complaints at this time. Review of Systems: As above, otherwise negative. Past Medical History: Includes glaucoma, multiple myeloma, history of lung cancer, and anxiety. Social History: Denies tobacco or alcohol use. Lives at home. Allergies: NO KNOWN DRUG ALLERGIES. Home Medications: Include Celexa, Boniva, Ativan, latanoprost, Xyzal. Physical Examination: General: No apparent distress. HEENT: Normocephalic, atraumatic. Neck: Supple. Cardiovascular: Brisk cap refill to all digits. Chest: Nonlabored breathing. Abdomen: Nondistended. Psychiatric: Responsive to exam. Musculoskeletal: Bilateral upper extremities; functional range of motion without pain, no gross defo rmities, no obvious dislocations. Right lower extremity; functional range of motion without pain, no gross deformities, no obvious dislocations. Left lower extremity; some pain with hip flexion and ab duction, no pain with internal or external rotation of the left hip. The patient was intact to the d orsal and plantar foot. Foot and ankle grossly without pain. Diagnostic Studies: CT scan of the pelvis demonstrates a minimally displaced left iliac wing fractur e and left superior and inferior pubic rami fractures. Assessment And Plan: Ms. Moon is an 88-year-old female with a left-sided pelvic ring injury as w ell as a left-sided iliac wing fracture. I discussed with the patient and family at length her diagn osis as well as treatment plan. No surgical intervention is indicated at this time. Physical Therap y may be consulted to aid with mobilization. The patient may be weightbearing as tolerated using a w alker. Discussed the plan with the patient. She may need to be discharged to inpatient rehab facili ty versus residential facility depending on her mobility. We will consult Social Work to aid wit h placement. The patient may follow up in my clinic in 2-3 weeks for reevaluation and x-rays of the pelvis. JAIDEN/DEJA Voice ID: [id number] Report ID: [id number]
[2024-07-30] MEDS: ALPRAZOLAM 0.5 MG TABLET PO ONE (22:24)
[2024-07-31 06:23] LABS: Absolute Eosinophils 0.1 K/uL (0-0.5); Absolute Lymphocytes (CBC) 1.3 K/uL (0.7-4.9); Absolute Monocytes 0.7 K/uL (0.1-1.3); Basophils % 0.1 % (0-1.3); Hemoglobin 11.5 g/dL (12.0-15.0); Lymphocytes % 18.6 % (15.3-44.8); MCH 33.2 pg (27.0-35.0); MCHC 34.7 g/dL (32.0-36.0); MCV 95.5 fL (80-100); Monocytes % 9.4 % (3.3-12.3); Neutrophils % 70.9 % (41.7-73.7); Nucleated Red Blood Cells % 0.1 % (0-0); Platelets 233 thou/uL (152-406); RBC Red Blood Cell Count 3.45 M/uL (3.86-4.86); Red Cell Distribution Width 12.6 % (12.1-15.2)
[2024-07-31 07:15] LABS: AST/SGOT 22 U/L (15-37); Albumin 2.8 g/dL (3.4-5.0); Albumin/Globulin Ratio 0.7 (1.1-1.8); Alkaline Phosphatase 47 U/L (45-117); BUN Blood Urea Nitrogen 9 mg/dL (7-18); Bicarbonate 24 mEq/L (21-32); Globulin 4.2 g/dL (2.3-3.5); Glomerular Filtration Rate 86 ml/min (=/>90); Glucose Level 112 mg/dL (74-106); Sodium Level 131 mEq/L (136-145)
[2024-07-31 07:18] LABS: ALT/SGPT < 14 U/L (13-56)
[2024-07-31] MEDS: LATANOPROST 0.005% 2.5ML OPTH OPTH SCH (09:00)
[2024-07-31] MEDS: TRAMADOL HCL 50 MG TAB PO PRN (09:09)
[2024-07-31] MEDS ORDERED: MORPHINE 15 MG IR TAB PO PRN (17:39)
--- NOTE | 2024-07-31 17:59 | P.PN ---
Subjective Date of Service: 07/31/24 Chief Complaint: Hip Pain Patient reports no pain as long as she remains still. Patient lost her IV access. Multiple attempts for peripheral IV access placement has been unsuccessful. Physical Examination - Vital Signs Temperature: 97.5 F Blood Pressure: 129/61 Pulse: 83 Respirations: 18 Pulse Ox (%): 97 Assessment And Plan - Plan Physical examination General: Alert and oriented x3, NAD, HEENT: Conjunctiva not pale, anicteric sclera Neck: Supple, no elevated JVD Heart: Heart sounds 1 and 2 normal, regular rhythm, normal rate, no pedal edema Lungs: Clear to auscultation bilaterally, adequate breath sounds bilaterally, no rhonchi or crackles. Abdomen: Soft, nondistended, nontender, normal bowel sounds. Extremities: No tenderness, no deformity Skin: Normal skin turgor, no rash, no nodules or ulcers. Neuro: No focal motor deficit. Normal speech. Psychiatry: Normal mood, no agitation. Diagnosis Fall Pelvic fracture Hyponatremia Fall Hip Pain Pelvic fractures Patient sustained left iliac wing fracture, left superior and inferior pubic ramus fractures. Orthopedic input appreciated. Dr. Mena recommend medical management, no indication for surgical intervention Analgesics as needed Continue PT. Anticipating disposition to skilled rehab. Hyponatremia Sodium level improved with IV NS. Patient lost her IV access and difficult to replace. Monitor BMP. Anxiety disorder Continue Celexa. Avoid oral Ativan for now. DVT prophylaxis: Lovenox Advanced directive: full code
[2024-08-01 06:53] LABS: Absolute Eosinophils 0.2 K/uL (0-0.5); Absolute Lymphocytes (CBC) 1.5 K/uL (0.7-4.9); Absolute Monocytes 0.8 K/uL (0.1-1.3); Absolute Neutrophil 4.1 K/uL (1.8-8.0); Basophils % 0.1 % (0-1.3); Eosinophils % 2.4 % (0-4.4); Hematocrit 32.2 % (36.0-45.0); Hemoglobin 11.6 g/dL (12.0-15.0); Lymphocytes % 23.5 % (15.3-44.8); MCH 34.1 pg (27.0-35.0); MCHC 35.9 g/dL (32.0-36.0); Monocytes % 11.8 % (3.3-12.3); Neutrophils % 62.2 % (41.7-73.7); Nucleated Red Blood Cells % 0.1 % (0-0); Platelets 228 thou/uL (152-406); Red Cell Distribution Width 12.3 % (12.1-15.2)
[2024-08-01 07:10] LABS: Anion Gap 6.7 mEq/L (5.0-15.0); Potassium 3.7 mEq/L (3.5-5.1)
[2024-08-01] MEDS: POTASSIUM CL SA 10 MEQ TAB PO ONE (11:52)
[2024-08-01 12:41] VITALS: O2SAT 95
[2024-08-01] MEDS ORDERED: PROMETHAZINE INJ 25 MG/ML AMP IV PRN (13:53)
[2024-08-01] MEDS ORDERED: TRAMADOL HCL 50 MG TAB PO PRN (13:54)
--- NOTE | 2024-08-01 16:25 | P.PN ---
Subjective Date of Service: 08/01/24 Chief Complaint: Hip Pain Patient reports pain with movement. Also reports some nausea today. Physical Examination - Vital Signs Temperature: 97.6 F Blood Pressure: 152/66 Pulse: 82 Respirations: 18 Pulse Ox (%): 95 Assessment And Plan - Plan Physical examination General: Alert and oriented x3, NAD, Neck: Supple, no elevated JVD Heart: Heart sounds 1 and 2 normal, regular rhythm, normal rate, no pedal edema Lungs: Clear to auscultation bilaterally, adequate breath sounds bilaterally, no rhonchi or crackles. Abdomen: Soft, nondistended, nontender, normal bowel sounds. Extremities: No tenderness, no deformity Skin: Normal skin turgor, no rash. Neuro: No focal motor deficit. Normal speech. Psychiatry: Normal mood, no agitation. Diagnosis Fall Pelvic fracture Hyponatremia Fall Hip Pain Pelvic fractures Patient sustained left iliac wing fracture, left superior and inferior pubic ramus fractures. Orthopedic input appreciated. Dr. Mena recommend medical management, no indication for surgical intervention Analgesics as needed-trial of tramadol. Continue PT. Anticipating disposition to skilled rehab. Hyponatremia Sodium level improved with IV NS. Patient lost her IV access and difficult to replace. Monitor BMP. Anxiety disorder Continue Celexa. Avoid oral Ativan for now. DVT prophylaxis: Lovenox Advanced directive: full code
[2024-08-01] MEDS: ONDANSETRON 4 MG (ODT) TAB PO PRN (17:22)
--- NOTE | 2024-08-02 16:50 | P.PN ---
Subjective Date of Service: 08/02/24 Chief Complaint: Hip Pain Patient states she feels better today. She states her pain is better. She is tolerating diet. Physical Examination - Vital Signs Temperature: 97.7 F Blood Pressure: 115/52 Pulse: 83 Respirations: 16 Pulse Ox (%): 99 Assessment And Plan - Plan Physical examination General: Alert and oriented x3, NAD, Neck: Supple, no elevated JVD Heart: Heart sounds 1 and 2 normal, regular rhythm, normal rate, no pedal edema Lungs: Clear to auscultation bilaterally, adequate breath sounds bilaterally, no rhonchi or crackles. Abdomen: Soft, nondistended, nontender, normal bowel sounds. Extremities: No tenderness, no deformity Skin: Normal skin turgor, no rash. Neuro: No focal motor deficit. Normal speech. Psychiatry: Normal mood, no agitation. Diagnosis Fall Pelvic fracture Hyponatremia Fall Hip Pain Pelvic fractures Patient sustained left iliac wing fracture, left superior and inferior pubic ramus fractures. Orthopedic input appreciated. Medical management, no indication for surgical intervention per Dr. Mena. Analgesics as needed-trial of tramadol. Continue PT. Disposition to skilled rehab. Hyponatremia Improved. Patient lost her IV access and difficult to replace. Monitor BMP. Anxiety disorder Continue Celexa. Avoid oral Ativan. DVT prophylaxis: Lovenox Advanced directive: full code
[2024-08-02] MEDS: methocarbamoL 500 MG TAB PO PRN (22:37)
[2024-08-03] MEDS ORDERED: WATER FOR INJ,STERILE 10 ML IM PRN (05:25)
[2024-08-03] MEDS: ZIPRASIDONE MESYLA 20 MG/VIAL IM PRN (05:45)
[2024-08-03 12:29] LABS: Absolute Eosinophils 0.1 K/uL (0-0.5); Absolute Lymphocytes (CBC) 1.9 K/uL (0.7-4.9); Absolute Neutrophil 4.5 K/uL (1.8-8.0); Basophils % 0.1 % (0-1.3); Eosinophils % 0.8 % (0-4.4); Hematocrit 32.2 % (36.0-45.0); Hemoglobin 11.2 g/dL (12.0-15.0); Lymphocytes % 25.5 % (15.3-44.8); MCH 33.4 pg (27.0-35.0); MCHC 34.9 g/dL (32.0-36.0); MCV 95.6 fL (80-100); MPV 6.7 fL (7.6-11.3); Monocytes % 13.3 % (3.3-12.3); Neutrophils % 60.3 % (41.7-73.7); Platelets 267 thou/uL (152-406); RBC Red Blood Cell Count 3.36 M/uL (3.86-4.86); Red Cell Distribution Width 12.4 % (12.1-15.2)
[2024-08-03 12:45] LABS: Anion Gap 9.2 mEq/L (5.0-15.0); Potassium 4.2 mEq/L (3.5-5.1)
--- NOTE | 2024-08-03 13:14 | P.PN ---
Subjective Date of Service: 08/03/24 Chief Complaint: Hip Pain [id number]-[id number] reports patient was agitated last night. She was given a dose of Geodon last night. Patient was sleeping but easily arousable during my interaction. Physical Examination - Vital Signs Temperature: 97.5 F Blood Pressure: 98/51 Pulse: 82 Respirations: 18 Pulse Ox (%): 97 Assessment And Plan - Plan Physical examination General: Alert and oriented x3, NAD, Neck: Supple, no elevated JVD Heart: Heart sounds 1 and 2 normal, regular rhythm, normal rate, no pedal edema Lungs: Clear to auscultation bilaterally, adequate breath sounds bilaterally, no rhonchi or crackles. Abdomen: Soft, nondistended, nontender, normal bowel sounds. Extremities: No tenderness, no deformity Skin: Normal skin turgor, no rash. Neuro: No focal motor deficit. Normal speech. Psychiatry: Normal mood, no agitation. Diagnosis Fall Pelvic fracture Hyponatremia Fall Hip Pain Pelvic fractures Patient sustained left iliac wing fracture, left superior and inferior pubic ramus fractures. Orthopedic Dr. Mena recommend medical management Analgesics as needed-trial of tramadol. Continue PT. Family contemplating home health with therapy versus SNF. Social service to follow Hyponatremia Continue to improve Patient lost her IV access and difficult to replace. Monitor BMP. Anxiety disorder Continue Celexa. Avoid oral Ativan. Dementia with behavioral disturbance Periodic reorientation. Consider Seroquel at bedtime. DVT prophylaxis: Lovenox Advanced directive: full code
[2024-08-03] MEDS: QUETIAPINE 25 MG TAB PO SCH (20:13)
--- NOTE | 2024-08-04 07:34 | P.PN ---
Date of Service: 08/04/24 Subjective: feeling better today no issues overnight family updated at bedside denies trouble swallowing ROS: 10 point ROS as noted above, otherwise negative Physical Exam: GEN: confused, awake CV: Regular rate and rhythm, no edema Pulm: Nonlabored respirations on room air, clear bilaterally ABD: soft, nontender, nondistended Integumentary: No rashes Neuro: Normal speech, normal affect Problem List: Left superior and inferior pubic ramus fractures Left Iliac wing fracture s/p fall Hyponatremia Anxiety disorder Dementia with behavioral disturbance Left superior and inferior pubic ramus fractures Left Iliac wing fracture s/p fall Patient presented with hip pain post fall. CT pelvis (07/30): left iliac wing fracture, left superior and inferior pubic ramus fractures Dr. Mena, ortho, recommend medical management pain control Continue PT. Family looking into SNF. office services coordinator consulted. Hyponatremia monitor and replete as needed Anxiety disorder Continue Celexa. Avoid oral Ativan. Dementia with behavioral disturbance continue home meds as appropriate Seroquel added 08/03 given huber 08/03 am VTE: Lovenox Code: Full Dispo: SNF, ~1-2 days Pending approval Time Spent Managing Pts Care (In Minutes): 55
[2024-08-04 16:34] VITALS: BP 178/72; TEMP 98
--- NOTE | 2024-08-05 06:37 | P.DS ---
Admission Date: 07/30/24 Discharge Date: 08/04/24 Disposition: TRANSFER TO SNF - REHAB Discharge Condition: GOOD Reason for Admission: Hip Pain Consultations: Ortho - Dr. Mena Brief History of Present Illness: 88 yo F, PMH: glaucoma, multiple myeloma, history of lung cancer, anxiety, Patient was brought to ER with hip pain status post fall. She had a fall from standing position and started having pain to left hip and groin after falling. Patient is a poor historian hence most of the history is obtained from the chart review and also talking to the ER physician and family at the bedside. She michelle arently got up from bed to go to the restroom and fell onto left side. States pt's walker was laying on it's side when the family walked into the room. Denies any syncopal episode. No seizures or loss of consciousness. Denies any nausea, vomiting, headache, neck pain. Pt only reports pain to left hip and groin. Patient was assessed in the ER and is admitted for further management of pubic Rami fracture Hospital Course: Problem List: Left superior and inferior pubic ramus fractures Left Iliac wing fracture s/p fall Hyponatremia Anxiety disorder Dementia with behavioral disturbance Physician discharge instructions: Patient presented with left hip pain after sustaining a fall at home. She was noted to have acute left superior and inferior pubic ramus fractures, in addition to left iliac wing fracture (seen on CT pelvis). Patient was evaluated by Dr. Mena, ortho, who recommended medical management with pain control, mobilization as tolerated. No indication to warrant surgical intervention at this time. Dr. Mena recommended weightbearing as tolerated with walker. She worked with PT throughout hospitalization. Given her mobility / physical impairment after fracture, it was felt she would benefit from a custodial facility to improve strength/endurance prior to returning home. Patient was reportedly feeling better, hip pain tolerable at times to participate with PT withy tylenol, and deemed stable to SNF. She reportedly had prior side effects - nausea/confusion from opioids, so family were wanting to minimize as much as possible. Patient was noted to have some nausea while receiving tramadol, but uncertain if this was the main cause. Continue to monitor pain control / pain medication regimen so that she can continue to participate with PT. Advised patient to follow up with Ortho in next 2-4 weeks for reevaluation, repeat xray imaging. No evidence of infection. Seroquel was started on the evening of 08/03 to assist in her delirium / insomnia, which it did seem to help. Medications: continue home meds seroquel 25mg at bedtime Follow up: PCP 3-5 days Ortho 2-4 weeks Please call to schedule / confirm appointments Physical Exam: GEN: confused, awake CV: Regular rate and rhythm, no edema Pulm: Nonlabored respirations on room air, clear bilaterally ABD: soft, nontender, nondistended Integumentary: No rashes Neuro: Normal speech, normal affect Vital Signs/Physical Exam: Temp Pulse Resp BP Pulse Ox 98.0 F 88 20 178/72 H 98 08/04/24 16:00 08/04/24 16:00 08/04/24 16:00 08/04/24 16:00 08/04/24 16:00 Laboratory Data at Discharge: WBC 7.40 thou/uL (4.3-10.9) 08/03/24 12:10 Hgb 11.2 g/dL (12.0-15.0) L 08/03/24 12:10 Hct 32.2 % (36.0-45.0) L 08/03/24 12:10 Plt Count 267 thou/uL (152-406) 08/03/24 12:10 PT 11.8 SECONDS (9.4-12.5) 07/30/24 01:55 INR 1.13 07/30/24 01:55 Sodium 131 mEq/L (136-145) L 08/04/24 05:18 Potassium 4.0 mEq/L (3.5-5.1) 08/04/24 05:18 BUN 19 mg/dL (7-18) H 08/04/24 05:18 Creatinine 0.64 mg/dL (0.55-1.02) 08/04/24 05:18 Glucose 101 mg/dL (74-106) 08/04/24 05:18 Total Bilirubin 1.0 mg/dL (0.2-1.0) 07/31/24 05:20 AST 22 U/L (15-37) 07/31/24 05:20 ALT < 14 U/L (13-56) 07/31/24 05:20 Alkaline Phosphatase 47 U/L (45-117) 07/31/24 05:20 Home Medications: Citalopram [Celexa] 10 mg PO DAILY 07/30/24 Ibandronate Sodium [Boniva] 150 mg PO SEECOM 07/30/24 LORazepam [Ativan] 1 mg PO PRN PRN 07/30/24 Latanoprost Ophth [Xalatan 0.005%*] 2.5 ml EACH EYE DAILY 07/30/24 Levocetirizine Dihydrochloride [Xyzal] 5 mg PO DAILY 07/30/24 Physician Discharge Instructions: Physician discharge instructions: Patient presented with left hip pain after sustaining a fall at home. She was noted to have acute left superior and inferior pubic ramus fractures, in addition to left iliac wing fracture (seen on CT pelvis). Patient was evaluated by Dr. Mena, lotus, who recommended medical management with pain control, mobilization as tolerated. No indication to warrant surgical intervention at this time. Dr. Mena recommended weightbearing as tolerated with walker. She worked with PT throughout hospitalization. Given her mobility / physical impairment after fracture, it was felt she would benefit from a custodial facility to improve strength/endurance prior to returning home. Patient was reportedly feeling better, hip pain tolerable at times to participate with PT withy tylenol, and deemed stable to SNF. She reportedly had prior side effects - nausea/confusion from opioids, so family were wanting to minimize as much as possible. Patient was noted to have some nausea while receiving tramadol, but uncertain if this was the main cause. Continue to monitor pain control / pain medication regimen so that she can continue to participate with PT. Advised patient to follow up with Ortho in next 2-4 weeks for reevaluation, repeat xray imaging. No evidence of infection. Seroquel was started on the evening of 08/03 to assist in her delirium / insomnia, which it did seem to help. Medications: continue home meds seroquel 25mg at bedtime Follow up: PCP 3-5 days Ortho 2-4 weeks Please call to schedule / confirm appointments Followup: Robert Fernandez MD [ACTIVE - CAN ADMIT] - (Follow up in 2-4 weeks) Kayla Olmstead NP [Primary Care Provider] - 1-2 Weeks Time spent managing pt's care (in minutes): 45
== END 2024-08-04 16:22 | DRG 536 ==
LOC: ER 22:11 → ERHOLD 07-30 03:02 → 2ND 07-30 14:17
PROVIDERS: ADMIT Family Medicine; ATTEND Hospitalist
DX: S32.512A Fracture of superior rim of left pubis, initial encounter for closed fracture (principal); E87.1 Hypo-osmolality and hyponatremia; F03.94 Unspecified dementia, unspecified severity, with anxiety; F03.918 Unspecified dementia, unspecified severity, with other behavioral disturbance; F05 Delirium due to known physiological condition; S32.302A Unspecified fracture of left ilium, initial encounter for closed fracture; S32.592A Other specified fracture of left pubis, initial encounter for closed fracture; M85.80 Other specified disorders of bone density and structure, unspecified site; Z85.118 Personal history of other malignant neoplasm of bronchus and lung; Z79.899 Other long term (current) drug therapy; W18.30XA Fall on same level, unspecified, initial encounter; Y93.01 Activity, walking, marching and hiking; Y92.013 Bedroom of single-family (private) house as the place of occurrence of the external cause; Y99.9 Unspecified external cause status
CPT/HCPCS: 36415; 70450; 72125; 72170; 72192; 80048; 80053; 81001; 83930; 85025; 85610; 86850; 86900; 86901; 96374; 97110; 97161; 97530; 99285; J1650; J2270; J3486; J7030; Q0162